=== PATIENT | male | born 1960 | race Caucasian/White ===

== ENCOUNTER 2018-04-28 09:53 | Emergency (ER) | payer BC, OTHER ==
[2018-04-28 10:43] VITALS: BP 145/79
--- NOTE | 2018-04-28 10:57 | UC ---
Elbow Pain - HPI Summary HPI Summary: The patient is a 57-year-old male with a three-day history of progressively worsening right elbow pain and swelling. Over the point of his elbow he has some redness and warmth. He denies any trauma. He has a callus over his olecranon which is chronic. He denies any fever or chills. He denies any limited range of motion to his left elbow. - History of Current Complaint Chief Complaint: UCUpperExtremity Stated Complaint: LEFT ELBOW PAIN Time Seen by Provider: 04/28/18 10:47 Hx Obtained From: Patient Onset/Duration: Days Severity Initially: Mild Severity Currently: Mild Pain Intensity: 1 Pain Scale Used: 0-10 Numeric Character: Aching Aggravating Factor(s): Other - pressure Associated Signs And Symptoms: Positive: Swelling, Redness Body - Head: 1 - red/warm/Full ROM - Allergies/Home Medications Allergies/Adverse Reactions: Allergies Allergy/AdvReac Type Severity Reaction Status Date / Time No Known Allergies Allergy Verified 03/23/15 16:02 PMH/Surg Hx/FS Hx/Imm Hx Previously Healthy: Yes Endocrine History: Dyslipidemia - Surgical History Surgical History: Yes Surgery Procedure, Year, and Place: ACDF c6-c7 2014, same surg c5-c6 2010. early 1999 had nasal/throat surg for sleep apnea. bilat knee. hernia x2. rupture disc lower back - Family History Known Family History: Positive: Hypertension, Non-Contributory - Social History Alcohol Use: None Substance Use Type: None Smoking Status (MU): Never Smoked Tobacco - Immunization History Most Recent Influenza Vaccination: none Most Recent Tetanus Shot: unsure Review of Systems All Other Systems Reviewed And Are Negative: Yes Constitutional: Positive: Negative Skin: Positive: Negative Eyes: Positive: Negative ENT: Positive: Negative Respiratory: Positive: Negative Cardiovascular: Positive: Negative Gastrointestinal: Positive: Negative Genitourinary: Positive: Negative Motor: Positive: Negative Neurovascular: Positive: Negative Musculoskeletal: Positive: Arthralgia - left elbow Neurological: Positive: Negative Psychological: Positive: Negative Physical Exam Triage Information Reviewed: Yes Appearance: Well-Appearing, No Pain Distress, Well-Nourished Vital Signs: Initial Vital Signs Temp 97.5 F 04/28/18 10:41 Pulse 76 04/28/18 10:41 Resp 16 04/28/18 10:41 BP 145/79 04/28/18 10:41 Pulse Ox 98 04/28/18 10:41 Vital Signs Reviewed: Yes Eyes: Positive: Conjunctiva Clear ENT: Positive: Hearing grossly normal. Negative: Nasal congestion, Nasal drainage, Trismus, Muffled voice, Hoarse voice Neck: Positive: Supple, Nontender, No Lymphadenopathy Respiratory: Positive: Lungs clear, Normal breath sounds, No respiratory distress Cardiovascular: Positive: RRR Musculoskeletal: Positive: ROM Intact, Other: - see image Neurological: Positive: Alert Psychological Exam: Normal Skin Exam: Normal Elbow Pain Course/Dx - Differential Dx/Diagnosis Provider Diagnosis: Olecranon bursitis, left elbow Discharge - Sign-Out/Discharge Documenting (check all that apply): Patient Departure All imaging exams completed and their final reports reviewed: No Studies - Discharge Plan Condition: Stable Disposition: HOME Prescriptions: Cephalexin CAP* [Keflex CAP*] 500 mg PO QID #28 cap Patient Education Materials: Elbow Bursitis (ED) Referrals: Gonzalez Zapien MD [Primary Care Provider] - 2 Days (if not better) Additional Instructions: warm compresses don't rest elbow on hard surfaces RECHECK FOR WORSENING SYMPTOMS recheck in 2-3 days if not improving if symptoms worsen you may need fluid drained aleve 2 pills twice daily with food - Billing Disposition and Condition Condition: STABLE Disposition: Home
== END 2018-04-28 11:01 | disposition home or self-care (01) ==
LOC: UCCORT 09:53
DX: M70.22 Olecranon bursitis, left elbow (principal)
CPT/HCPCS: 99202; G0463

== ENCOUNTER 2018-07-22 10:15 | Emergency (ER) | payer BC ==
--- OUTSIDE RECORDS SUMMARY | 2018-07-22 11:10 | XMS REPORT | Continuity of Care Document ---
:1960 External Reference #:[id number] Author Name Olinda Campos MD Address [address] [place] [address] Care Team Providers Name Role Phone Gonzalez Zapien MD Care Team Information Headlight Adjuster Unavailable Gonzalez Zapien MD Primary Care Physician Unavailable Payers Date Identification Numbers Payment Provider Subscriber Expires: 2016 Policy Number: [id number] Jaspreet Stephenson PayID: [id number] [address] [place] [address] Policy Number: [id number] Jaspreet Stephenson PayID: [id number] [place] [address] Problems Active Problems Provider Date 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,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 Family History Date Family Member(s) Observation Comments General Arthritis father and sister Father due to Parkinson's Disease () Mother due to Heart Disease () First Sister Breast Cancer First Sister Arthritis Second Sister Arthritis Social History Type Date Description Comments Sex Unknown Marital Status Patient is Occupation Service Rep Work Status Currently Working Hand Dominance Right-handed Drive Patient drives ETOH Use Rarely consumes alcohol Tobacco Use Start: Unknown Patient has never smoked Recreational Drug Use Denies Drug Use Smoking Status Reviewed: 06/22/18 Patient has never smoked Allergies, Adverse Reactions, Alerts Description No Known Drug Allergies Medications Active Medications SIG Qnty Indications Ordering Provider Date Lovastatin 1 by mouth every Unknown 20mg Tablets day Multi Vitamin Daily Unknown Tablets Cialis 1 by mouth every Unknown 5mg Tablets day as needed History Medications Hydrocodone-Acetaminophen 1 tablet as 14tabs D48.1 Cedric, 06/28/2016 - 5-325mg Tablets needed for Bonilla, 05/22/2018 pain every 6 MD,FACS hours. may use two tablets every 8 hours if needed Aspir-81 1 by mouth Unknown - 81mg Tablets DR every day 05/16/2018 Lyrica 50mg one by mouth Unknown - Capsules twice a day 05/16/2018 Vital Signs Date Vital Result Comment 07/03/2018 9:12am BP Systolic Sitting Left Arm 118 mmHg BP Diastolic Sitting Left Arm 79 mmHg Body Temperature 97.4 F Heart Rate 66 /min Height 74 inches 6'2" Weight 268.00 lb BMI (Body Mass Index) 34.4 kg/m2 BSA (Body Surface Area) 2.46 m2 [place] body weight in kilograms 86 kg O2 % BldC Oximetry 96 % 05/22/2018 11:11am BP Systolic Sitting Right Arm 122 mmHg BP Diastolic Sitting Right Arm 82 mmHg Body Temperature 97.3 F Heart Rate 68 /min Height 74 inches 6'2" Weight 270.00 lb BMI (Body Mass Index) 34.7 kg/m2 BSA (Body Surface Area) 2.47 m2 [place] body weight in kilograms 86 kg O2 % BldC Oximetry 98 % 08/02/2016 8:34am BP Systolic 122 mmHg BP Diastolic 78 mmHg Height 74 inches 6'2" Weight 267.00 lb BMI (Body Mass Index) 34.3 kg/m2 BSA (Body Surface Area) 2.46 m2 [place] body weight in kilograms 86 kg 06/28/2016 10:23am BP Systolic 122 mmHg BP Diastolic 80 mmHg Height 74 inches 6'2" Weight 267.00 lb BMI (Body Mass Index) 34.3 kg/m2 BSA (Body Surface Area) 2.46 m2 [place] body weight in kilograms 86 kg 08/19/2014 11:19am Height 74 inches 6'2" Weight 263.00 lb BMI (Body Mass Index) 33.8 kg/m2 BSA (Body Surface Area) 2.44 m2 Procedures Date Code Description Status 05/22/2018 35874 Radiology, Elbow Complete Completed 05/22/2018 34340 Radiology, Elbow Complete Completed 07/19/2016 43341 Excised Benign Lesion Incl Margins, Exc Skin Tag, Completed Trunk&Ext 3.1-4 08/19/2014 24265 Nerve Conduction 7-8 Studies Completed 08/19/2014 74626 Needle Electromyography Complete, Five Or More Muscles Completed Studied Encounters Type Date Location Provider Dx Diagnosis Office Visit 08/02/2016 Surgical Office Bonilla Steele 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
[2018-07-22 11:13] VITALS: BP 115/72
--- NOTE | 2018-07-22 11:15 | UC ---
Ear Complaint HPI - HPI Summary HPI Summary: Right earache for the past few days and then developed URI symptoms today - History of Current Complaint Chief Complaint: UCEar Stated Complaint: EAR PAIN Time Seen by Provider: 07/22/18 11:15 Hx Obtained From: Patient Onset/Duration: Gradual Onset Severity Initially: Mild Severity Currently: Mild Pain Intensity: 1 Aggravating Factors: Nothing Alleviating Factors: Nothing Associated Signs/Symptoms: Positive: URI Symptoms - Allergies/Home Medications Allergies/Adverse Reactions: Allergies Allergy/AdvReac Type Severity Reaction Status Date / Time No Known Allergies Allergy Verified 07/22/18 11:08 PMH/Surg Hx/FS Hx/Imm Hx Previously Healthy: Yes Endocrine History: Dyslipidemia - Surgical History Surgical History: Yes Surgery Procedure, Year, and Place: ACDF c6-c7 2014, same surg c5-c6 2010. early 1999 had nasal/throat surg for sleep apnea. bilat knee. hernia x2. rupture disc lower back - Family History Known Family History: Positive: None, Hypertension, Non-Contributory - Social History Alcohol Use: Rare Substance Use Type: None Smoking Status (MU): Never Smoked Tobacco - Immunization History Most Recent Influenza Vaccination: none Most Recent Tetanus Shot: unsure Review of Systems All Other Systems Reviewed And Are Negative: Yes ENT: Positive: Ear Ache, Nasal Discharge Is Patient Immunocompromised?: No Physical Exam Triage Information Reviewed: Yes Appearance: Well-Appearing, No Pain Distress, Well-Nourished Vital Signs: Initial Vital Signs Temp 97.9 F 07/22/18 11:09 Pulse 77 07/22/18 11:09 Resp 16 07/22/18 11:09 BP 115/72 07/22/18 11:09 Pulse Ox 96 07/22/18 11:09 Vital Signs Reviewed: Yes Eyes: Positive: Conjunctiva Clear ENT: Positive: Pharynx normal, Nasal congestion, Nasal drainage, TM red - Rioght TM with erythema, the ear canal is also erythematous and mildy swollen with whitish/green drainage in the ear canal. Left TM is normal Neck: Positive: Supple, Nontender, No Lymphadenopathy Respiratory: Positive: Lungs clear, Normal breath sounds, No respiratory distress, No accessory muscle use Cardiovascular: Positive: RRR, No Murmur, Pulses Normal, Brisk Capillary Refill Musculoskeletal Exam: Normal Neurological Exam: Normal Psychological Exam: Normal Skin Exam: Normal Ear Complaint Course/Dx - Course Course Of Treatment: Pt is comfortable here. Keep ears dry. - Differential Dx/Diagnosis Provider Diagnosis: Otitis externa, Otitis media Discharge - Sign-Out/Discharge Documenting (check all that apply): Patient Departure All imaging exams completed and their final reports reviewed: No Studies - Discharge Plan Condition: Fair Disposition: HOME Prescriptions: Amoxicillin PO (*) [Amoxicillin 875 MG (*)] 875 mg PO BID 10 Days #20 tab Ciproflox/Dexameth OTIC.SUSP* [Ciprodex Otic*] 4 drop RIGHT EAR BID 7 Days #1 bottle Patient Education Materials: Otitis Externa (DC), Ear Infection (ED) Referrals: Gonzalez Zapien MD [Primary Care Provider] - Additional Instructions: May take Tylenol every 4 hours and Motrin every 8 hours for pain. Follow-up with your primary care provider if no improvement in 3 or 4 days. - Billing Disposition and Condition Condition: FAIR Disposition: Home - Attestation Statements Provider Attestation: Per institutional requirements, I have reviewed the chart, however, I was not consulted specifically or made aware of this patient by the midlevel provider. I did not personally evaluate, interact with , or disposition this patient.
== END 2018-07-22 11:33 | disposition home or self-care (01) ==
LOC: UCCORT 10:15
DX: H60.91 Unspecified otitis externa, right ear (principal); H66.91 Otitis media, unspecified, right ear
CPT/HCPCS: 99212; G0463